=== PATIENT | female | born 1970 | race Caucasian/White ===

== ENCOUNTER 2017-03-27 07:45 | Day surgery (SDC) | payer OTHER ==
[~2017-03-27] VITALS: Ht 175.3 cm; Wt 108.9 kg
[~2017-03-27 07:45] MED LIST: 0.9% Sodium Chloride 1,000 ML IV SCH; MELA1TAB11 PO; PANT40TA3 PO; Sodium Chloride LOK Flush 10 mL Syringe IV PRN; fentaNYL-PF 50 mCg/mL 2 mL Inj IVPUSH PRN
[2017-03-27 08:04] VITALS: BP 124/84; PULSE 79; RESP 17; O2SAT 98
[2017-03-27 08:50] VITALS: BP 115/67; PULSE 69; RESP 16; O2SAT 94
[2017-03-27 09:00] VITALS: BP 120/75; PULSE 74; RESP 16; O2SAT 95
--- NOTE | 2017-03-27 09:04 | ENDO ---
[address] [address] ENDOSCOPY PROCEDURE PATIENT: DANILO HILLIARD : 1970 MR#: [id number] ADMIT: 03/27/2017 JOB ID: [id number] DATE OF SERVICE: 03/27/2017 PROCEDURE PERFORMED: Esophagogastroduodenoscopy. INDICATION: Gastroesophageal reflux. ASA CLASSIFICATION: The patient's ASA classification is II. MALLAMPATI SCORE: Mallampati score is 2. MEDICATIONS: 1. Versed 5 mg. 2. Fentanyl 100 mcg. INSTRUMENT USED: [id number]. PROCEDURE DETAILS: After informed consent was obtained, the patient was brought into the GI suite, where she was placed on oxygen via nasal cannula and monitored with continuous pulse oximeter, telemetry, and blood pressure monitoring. A time-out was performed. Then, she was placed in the left lateral decubitus position, and medications were administered for sedation. A bite block was placed. A standard EGD scope was inserted through the bite block and advanced under direct visualization to the second portion of the duodenum without difficulty. FINDINGS: 1. Normal appearing duodenal bulb, first and second portions. 2. Normal appearing pylorus. In the antrum and body of stomach there was erythema suggestive of mild gastritis. Multiple random biopsies were obtained. 3. Retroflexed views in the gastric body revealed normal appearing cardia and fundus. 4. The diaphragmatic hiatus was at approximately 41 cm, and the GE junction was at 40 cm and was regular. Just above the GE junction the mucosa was erythematous suggestive of esophagitis. IMPRESSION: 1. Mild gastritis. 2. Mild esophagitis. 3. Small hiatal hernia. RECOMMENDATIONS: 1. Weight loss. 2. Continue PPI daily. 3. Follow up in GI clinic. 4. Follow up on biopsy results. COMPLICATIONS: None. ESTIMATED BLOOD LOSS: Less than 5 mL.
[2017-03-27 09:10] VITALS: BP 127/69; PULSE 79; RESP 16; O2SAT 96
--- NOTE | 2017-03-28 13:26 | PATH ---
SURGICAL PATHOLOGY Attending Physician:Tristian Oropeza CASE STATUS: Signed Out PATIENT NAME: DANILO HILLIARD PID: [id number] : 1970 DATE COLLECTED:03/27/2017 16:29 SPECIMEN: Gastric, Biopsy CLINICAL HISTORY: 1.GASTRIC BX FINAL DIAGNOSIS: 1.GASTRIC BIOPSY: ANTRAL AND BODY-TYPE MUCOSA WITH NO DIAGNOSTIC ALTERATIONS. Negative for Helicobacter organisms. Negative for intestinal metaplasia. Negative for dysplasia and malignancy. ICD10 code R10.13 GROSS DESCRIPTION: The specimen is received in one formalin filled container labeled with the patient's name, sublabeled "gastric" and consists of 3 portions of tissue which aggregate to 0.4 x 0.3 x 0.2 CM. The specimen is entirely submitted in one cassette. 03/27/2017 [facility] MICRO DESCRIPTION: See diagnosis. ICD-9 CODES: CPT CODES: 1: 94156 Electronically Signed Out Lorelei Celestin MD [facility] [address], [place] [address] Technical component performed at [facility], [address] [place] [address] [address], [address]
== END 2017-03-27 23:59 | disposition home or self-care (01) ==
LOC: END 07:45
PROVIDERS: ATTEND Internal Medicine Gastroenterology
DX: K21.9 Gastro-esophageal reflux disease without esophagitis (principal); K29.70 Gastritis, unspecified, without bleeding; K44.9 Diaphragmatic hernia without obstruction or gangrene; K20.9 Esophagitis, unspecified
CPT/HCPCS: 43239; 88305; G0500; J7030